=== PATIENT | male | born 1955 ===

== ENCOUNTER → 2018-02-03 21:32 | Outpatient (REF) | payer BC, SELFPAY ==
[2018-02-03 22:34] LABS: Hematocrit 44.4 % (41-53); Mean Corpuscular HGB Conc 33.7 % (30-36); Mean Corpuscular Volume 94.8 fL (80-100); Platelet Count 187 X10^3/uL (150-400); Red Blood Cell Count 4.69 X10^6/uL (4.5-5.9); Red Cell Distribution Width 13.4 % (11.6-14.8); White Blood Cell Count 5.6 X10^3/uL (4.5-11.0)
[2018-02-03 22:37] LABS: Add Manual Diff / Slide Review YES
[2018-02-03 23:37] LABS: Erythrocyte Sedimentation Rate 8 MM/HR (0-15)
[2018-02-04 01:29] LABS: Vitamin D 25 Hydroxy (D3) 52.7 ng/mL (30.0-100.0)
[2018-02-04 04:26] LABS: RBC Morphology Normal Morphology
[2018-02-04 05:51] LABS: Hemoglobin A1C% w Est Avg Glu 6.2 % (4.0-6.0)
[2018-02-04 06:50] LABS: HEMOLYSIS < 15 (0-50); Iron 112 ug/dL (49-181)
[2018-02-04 07:00] LABS: Percent Iron Saturation 34 % (20-50); Total Iron Binding Capacity 328 ug/dL (261-462); Transferrin 254 mg/dL (206-381)
[2018-02-04 07:14] LABS: Alanine Aminotransferase 36 IU/L (21-72); Albumin 4.7 g/dL (3.5-5.0); Albumin Globulin Ratio 1.7 (1.0-2.8); Alkaline Phosphatase 52 U/L (38-126); Aspartate Aminotransferase 24 IU/L (17-59); BUN Creatinine Ratio 21.4 (6-22); Bilirubin Total 1.4 mg/dL (0.2-1.3); Blood Urea Nitrogen 15 mg/dL (9-20); Calcium 9.5 mg/dL (8.4-10.2); Carbon Dioxide 24 mmol/L (22-32); Chloride 103 mmol/L (98-107); Cholesterol 195 mg/dL (140-199); Estimated Glomerular Filt Rate > 60.0 mL/min (>60); Gamma Glutamyl Transpeptidase 28 U/L (15-73); Globulin 2.7 g/dL (1.7-4.1); Glucose 120 mg/dL (80-110); HDL Cholesterol 39 mg/dL (40-60); HEMOLYSIS < 15 (0-50); LDL Cholesterol Calculated 134 mg/dL (<100); Potassium 4.4 mmol/L (3.4-5.1); Sodium 142 mmol/L (137-145); Total Protein 7.4 g/dL (6.3-8.2); Triglycerides 108 mg/dL (35-150)
[2018-02-04 07:18] LABS: C-Reactive Protein Quant < 0.5 mg/dL (<1.0)
[2018-02-04 07:19] LABS: Thyroid Stimulating Hormone 0.85 uIU/mL (0.47-4.68)
[2018-02-04 07:48] LABS: Ferritin 41.4 ng/mL (17.9-464)
[2018-02-05 16:44] LABS: Insulin Level Total 6.5 uIU/mL (2.0-19.6)
[2018-02-06 17:17] LABS: Homocysteine 15.3 umol/L (< 11.4)
[2018-02-08 10:14] LABS: Testosterone Free 71.4 pg/mL (35.0-155.0); Testosterone Total 572 ng/dL (250-1100)
== END ==
LOC: LAB 21:32
PROVIDERS: Visit Provider Family Medicine
DX: Z00.00 Encounter for general adult medical examination without abnormal findings (principal); Z13.1 Encounter for screening for diabetes mellitus; Z13.220 Encounter for screening for lipoid disorders
CPT/HCPCS: 36415; 80053; 80061; 82306; 82728; 82977; 83036; 83090; 83525; 83540; 83550; 84402; 84403; 84443; 85025; 85651; 86140; 86356; 86359